=== PATIENT | female | born 1955 | race Caucasian/White ===

== ENCOUNTER 2017-07-30 10:18 | Emergency (ER) | payer BC ==
--- NOTE | 2017-07-30 11:08 | EDM.PDOC ---
ED HPI GENERAL MEDICAL PROBLEM - General Chief Complaint: Lower Extremity Injury/Pain Stated Complaint: KNEE PAIN Time Seen by Provider: 07/30/17 11:06 Source of Information: Reports: Patient History Limitations: Reports: No Limitations - History of Present Illness INITIAL COMMENTS - FREE TEXT/NARRATIVE: HISTORY AND PHYSICAL: [62-year-old female presents with pain to her right leg and knee] History of Present Illness: []This has been riding in a car has never experienced this before a pain occurred about midnight last night and has not improved throughout the day. At times pain is 8/10 Review of Systems: As per history of present illness and below otherwise all systems reviewed and negative. Past medical history: As per history of present illness and as reviewed below otherwise noncontributory. Surgical history: As per history of present illness and as reviewed below otherwise noncontributory. Social history: No reported history of drug or alcohol abuse. Family history: As per history of present illness and as reviewed below otherwise noncontributory. Physical exam: Alert and oriented female answering questions appropriately denies having any other difficulties HEENT: Atraumatic, normocehpalic, pupils reactive, negative for conjunctival pallor or scleral icterus, mucous membranes moist, throat clear, neck supple, nontender, trachea midline. Lungs: Clear to auscultation, breath sounds equal bilaterally, chest non tender. Heart: S1S2, regular, negative for clicks, rubs, or JVD. Abdomen: Soft, nondistended, nontender. Negative for masses or hepatossplenmegaly. Negative for costovertebral tenderness. Pelvis: Stable nontender. Genitourinary: Deferred. Rectal: Deferred Extremities: Atraumatic, negative for cords or calf pain. Neurovascular unremarkable. Neuro: Awake, alert, oriented. Cranial nerves II through XII unremarkable. Cerebellum unremarkable. Motor and sensory unremarkable throughout. Exam nonfocal. Ultrasound was negative for any DVT have discussed this with patient and her family members present Diagnostics: [Ultrasound right leg rule out DVT] Therapeutics: [] Impression: [Right leg pain] Plan: [Discharged to home [id number]-[id number] medications discussed Moist heat to this area Any worsening of symptoms return immediately for reevaluation] Definitive disposition and diagnosis as appropriate pending reevaluation and review of above. Onset: Today, Sudden Right Lower Leg Pain Score (Numeric/FACES): 4 - Related Data Allergies Allergy/AdvReac Type Severity Reaction Status Date / Time celecoxib [From Celebrex] Allergy Rash Verified 07/30/17 10:45 Home Meds: Home Meds Acyclovir 800 mg PO DAILY 07/30/17 [History] Alendronate Sodium [Fosamax] 70 mg PO WEEKLY 07/30/17 [History] Ca/D3/Mag#11/Zinc/Raw Juice Weigher/Josse/Bor [Caltrate 600+D Plus Tablet] 1 tab PO DAILY 07/30 [History] Clobetasol [Clobetasol 0.05%] 1 appful TOP ASDIRECTED PRN 07/30/17 [History] Doxycycline Monohydrate 100 mg PO BID 07/30/17 [History] Ferrous Sulfate 1 tab PO DAILY 07/30/17 [History] Insulin Glargine,Hum.Rec.Anlog [Pancho Solсергей] 5 unit SQ BEDTIME 07/30/17 [ History] Lipase/Protease/Amylase [Leonora Frazier 36,000 Units Capsule] 3 cap PO TID 07/30/17 [ History] Multivitamin [Multivitamins] 1 tab PO DAILY 07/30/17 [History] Omeprazole 20 mg PO DAILY 07/30/17 [History] Prednisone [IJD: Prednisone] 10 mg PO ASDIRECTED 07/30/17 [History] Ranitidine HCl [Zantac] 150 mg PO DAILY 07/30/17 [History] glyBURIDE [Glyburide] 5 mg PO DAILY 07/30/17 [History] Review of Systems - Review of Systems Review Of Systems: ROS reveals no pertinent complaints other than HPI. ED EXAM, GENERAL - Physical Exam Exam: See Below (See dictation) Course - Vital Signs Last Recorded V/S: Last Vital Signs Temp 36.3 C 07/30/17 10:36 Pulse 89 07/30/17 10:36 Resp 16 07/30/17 10:36 BP 103/66 07/30/17 10:36 Pulse Ox 97 07/30/17 10:36 - Orders/Labs/Meds Orders: Active Orders 24 hr Category Date Time Status Venous Doppler Lwr Ext Rt [US] Stat Exams 07/30/17 11:07 Taken Meds: Medications Discontinued Medications Generic Name Dose Route Start Last Admin Trade Name Freq PRN Reason Stop Dose Admin Hydrocodone Bitart/Acetaminophen 1 tab 12/23/17 11:15 07/30/17 11:30 [place] 325-5 Mg PO 07/30/17 11:16 1 tab ONETIME ONE Administration Departure - Departure Time of Disposition: 12:33 Disposition: Home, Self-Care 01 Condition: Good Clinical Impression: Pain in right leg - Discharge Information Referrals: Bonilla Asif MD [Primary Care Provider] - Forms: ED Department Discharge Additional Instructions: The following information is given to patients seen in the emergency department who are being discharged to home. This information is to outline your options for follow-up care. We provide all patients seen in our emergency department with a follow-up referral. The need for follow-up, as well as the timing and circumstances, are variable depending upon the specifics of your emergency department visit. If you don't have a primary care physician on staff, we will provide you with a referral. We always advise you to contact your personal physician following an emergency department visit to inform them of the circumstance of the visit and for follow-up with them and/or the need for any referrals to a consulting specialist. The emergency department will also refer you to a specialist when appropriate. This referral assures that you have the opportunity for followup care with a specialist. All of these measure are taken in an effort to provide you with optimal care, which includes your followup. Under all circumstances we always encourage you to contact your private physician who remains a resource for coordinating your care. When calling for followup care, please make the office aware that this follow-up is from your recent emergency room visit. If for any reason you are refused follow-up, please contact the [facility] emergency department at and asked to speak to the emergency department charge nurse. Discussion of [id number] pain medicines Moist heat to this area Any adverse changes to her condition she'll need to be evaluated immediately - My Orders Last 24 Hours: My Active Orders 07/30/17 11:07 Venous Doppler Lwr Ext Rt [US] Stat - Assessment/Plan Last 24 Hours: My Active Orders 07/30/17 11:07 Venous Doppler Lwr Ext Rt [US] Stat
[2017-07-30] MEDS ORDERED: Acetaminophen/HYDROcodone 325-5 MG Tab PO ONE (11:15)
--- NOTE | 2017-08-02 13:47 | US ---
EXAM DATE: 07/30/17 PATIENT'S AGE: 62 Patient: ABBY OLVERA Facility: [place], [place] Site . Site : [id number] Study: US Extremity Right [id number]/[id number] 11:56:39 AM Ordering Physician: Doctor Monk Final Report: CLINICAL HISTORY: Pain following TECHNIQUE: A compression venous ultrasound exam was performed of the right lower extremity using medina-scale imaging, color Doppler and spectral Doppler analysis. FINDINGS: Sonographic imaging of the right lower extremity demonstrates normal compressibility and color Doppler venous blood flow within the common femoral vein, deep femoral vein, and the proximal greater saphenous vein. Within the thigh, the femoral vein is patent and compressible. At a lower level, the popliteal and posterior tibial veins also show normal compressibility and color Doppler venous blood flow. Suboptimal visualization the calf veins. Limited imaging of the contralateral groin demonstrates a normal spectral waveform and color Doppler venous blood flow within the left common femoral vein. IMPRESSION: Normal venous ultrasound exam. No evidence of deep vein thrombosis within the right lower extremity. Suboptimal visualization of the calf veins. Dictated by Dianna Amos MD @ Jul 30 2017 12:21PM (Electronic Signature) Report Signed by Proxy. TOÑO
== END 2017-07-30 12:42 | disposition home or self-care (01) ==
LOC: MW.ED 10:18
DX: M25.561 Pain in right knee (principal); Z88.8 Allergy status to other drugs, medicaments and biological substances; Z79.899 Other long term (current) drug therapy; Z79.4 Long term (current) use of insulin
CPT/HCPCS: 93971; 99283; A9270